=== PATIENT | male | born 1970 | race Two or more races ===

== ENCOUNTER 2020-02-15 12:34 | Emergency (ER) | payer OTHER ==
[~2020-02-15] VITALS: Ht 170.2 cm; Wt 84.0 kg
[2020-02-15 13:06] VITALS: BP 146/91
[2020-02-15] MEDS ORDERED: DIPH,PERTUSS(ACELL),TET VAC/PF 0.5 ML SYRINGE. VAX IM ONE (13:45)
[2020-02-15] MEDS ORDERED: LIDOCAINE 1% Multi-Dose 20 ML VIAL. INJ ONE (13:45)
[2020-02-15] MEDS ORDERED: CEPHALEXIN 250 MG CAPSULE. PO STA (14:35)
[2020-02-15] MEDS ORDERED: CEPH500T PO (14:41)
[2020-02-15] MEDS ORDERED: BACI28.34 TP (14:41)
--- NOTE | 2020-02-15 14:42 | PHYS DOC ---
Past Medical History Past Medical History: No Pertinent History Past Surgical History: No Surgical History Smoking Status: Never Smoker Alcohol Use: None General Adult EDM: Chief Complaint: LACERATION/AVULSION HPI: HPI: Patient is a 49 year old male who presents with laceration to back of scalp. Patient states he was at work using some machinery when his hands slipped off the handles and he fell backwards striking his head against the metal cage. Patient states he did not fall to the ground, also states he did not lose consciousness. Patient states he was dazed for just a few seconds. Patient states that he noticed blood coming from the back of his head, and drove himself to the emergency department. Patient denies any fever or chills, denies any exposure to the COVID-19 virus, has no COVID-19 or concerns. She denies any visual changes, any head or neck pain. Patient denies any cough or shortness of breath, any chest pain or edema. Patient denies any abdominal pain, nausea, vomiting, diarrhea, constipation, or problems urinating. Patient denies any problems seeing or any visual changes, or any nasal congestion. Patient denies any skin rashes, any back pain, or pain in his joints. Patient currently denies any focal weaknesses or sensory changes. Patient denies any swelling of his glands. Patient denies any recent life changes, depressions, anxieties, homicidal or suicidal ideations. While patient does deny headache, he states it does hurt if you push on the laceration site on the back of his head. Patient states he was able to get the bleeding to stop with a pressure dressing applied. Review of Systems: Review of Systems: Constitutional: Denies fever or chills. Denies exposure to or concerns of COVID-19 virus. Eyes: Denies change in visual acuity. HENT: Denies nasal congestion or sore throat. Respiratory: Denies cough or shortness of breath. Cardiovascular: Denies chest pain or edema. GI: Denies abdominal pain, nausea, vomiting, bloody stools or diarrhea. : Denies dysuria. Musculoskeletal: Denies back pain or joint pain. Complains of pain to the back of his head at laceration site. Integument: Denies rash. Complains of a laceration to the back of his head. Neurologic: Denies headache, focal weakness or sensory changes. Lymphatic: Denies swollen glands. Psychiatric: Denies depression or anxiety. Denies homicidal or suicidal ideation Heart Score: Risk Factors: Risk Factors: DM, Current or recent (<one month) smoker, HTN, HLP, family history of CAD, obesity. Risk Scores: Score 0 - 3: 2.5% MACE over next 6 weeks - Discharge Home Score 4 - 6: 20.3% MACE over next 6 weeks - Admit for Clinical Observation Score 7 - 10: 72.7% MACE over next 6 weeks - Early Invasive Strategies Family History: Family History: States he does not know any health history of his mother or father, states he thinks they are both healthy. Current Medications: Current Medications Medications (Trade) Dose Ordered Sig/Pradip Start Time Stop Time Status Last Admin Dose Admin Bacitracin (Bacitracin Zinc Oint Pkt) 1 pkt 1X ONCE 02/15/20 14:45 02/15/20 14:46 UNV Diphtheria/ Tetanus/Acell Pertussis (ADACEL TDap SYRINGE) 0.5 ml ONCE ONCE 02/15/20 13:45 02/15/20 13:46 DC 02/15/20 13:50 0.5 ML Lidocaine HCl (Lidocaine 1% 20ml Vial) 20 ml 1X ONCE 02/15/20 13:45 02/15/20 13:46 DC 02/15/20 13:50 20 ML Allergies: Allergies: Allergies Coded Allergies Type Severity Reaction Last Updated Verified No Known Drug Allergies 02/15/20 No Physical Exam: PE: Constitutional: Well developed, well nourished, no acute distress, non-toxic appearance. HENT: Normocephalic, atraumatic, bilateral external ears normal, oropharynx moist, no oral exudates, nose normal. Eyes: PERRLA, EOMI, conjunctiva normal, no discharge. 4 mm. Neck: Normal range of motion, no tenderness, supple, no stridor. Cardiovascular:Heart rate regular rhythm, no murmur, heart sounds S1-S2, no abnormalities per auscultation. Lungs & Thorax: Bilateral breath sounds clear to auscultation all lung zavala. Abdomen: Bowel sounds normal all 4 quadrants, soft, no tenderness, no masses, no pulsatile masses. Skin: Warm, dry, no erythema, no rash. Has approximately 2.5 cm laceration centerline mid occipital area without bleeding full-thickness. Back: No tenderness, no CVA tenderness. Extremities: No tenderness, no cyanosis, no clubbing, ROM intact, no edema. Neurologic: Alert and oriented X 3, normal motor function, normal sensory function, no focal deficits noted. Psychologic: Affect normal, judgement normal, mood normal. No homicidal or suicidal ideations. Current Patient Data: Vital Signs: Vital Signs Date Time Temp Pulse Resp B/P (MAP) Pulse Ox O2 Delivery O2 Flow Rate FiO2 02/15/20 13:06 98.7 74 16 146/91 (109) 98 Room Air 98.7 EKG: EKG: [] Radiology/Procedures: Radiology/Procedures: [] Course & Med Decision Making: Course & Med Decision Making Pertinent Labs and Imaging studies reviewed. (See chart for details) Patient is [place]-speaking, the facility translation service was used for HPI, physical exam, and discharge instructions. Patient presents with a full-thick ness laceration to the midline occipital aspect scalp without bleeding. Patient reported this happened from a work injury and did not get knocked out, CAT scan imaging was offered concerning for possible close head injury, patient feels like since he did not get knocked out and he is not having any symptoms or headache, that he did not want to have any CAT scan imaging done today. Related to patient alert and oriented x3, I feel that it is appropriate that he can make his own healthcare decisions and it was discussed with the patient that he should return if he has any increased headaches or neurological changes. Patient agreed to this. The laceration was cleansed with Betadine, irrigated with 200 cc of normal saline high-pressure, anesthetized with approximately 3 cc of 1% lidocaine without epinephrine. Patient achieved satisfactory anesthesia, laceration site inspected and no foreign body or debris was noted, laceration was repaired with 5 integumentary bernabe, patient tolerated well, edges well approximated, no bleeding from site. ED nursing staff applied bacitracin ointment, patient was given discharge instructions for bernabe to be removed within 10 days, use of antibiotic ointment daily. Patient was given first dose of p.o. Keflex in the ED, was also given a prescription for p.o. Keflex to fill at pharmacy. Patient gave verbal understanding of discharge home instructions, staple care, and antibiotic prescriptions along with return to ER precautions and concerns. Patient had no further questions or concerns, patient discharged home. Toby Disclaimer: Dragalfa Disclaimer: This electronic medical record was generated, in whole or in part, using a voice recognition dictation system. Departure Departure Impression: Primary Impression: Scalp laceration Qualified Codes: S01.01XA - Laceration without foreign body of scalp, initial encounter Disposition: HOME, SELF-CARE Condition: GOOD Referrals: NO PCP (PCP) Patient Instructions: Laceration Care, Adult Additional Instructions: Have bernabe removed in 10 days return to the emergency department for increased pain, or signs of infection, see your doctor soon. Take antibiotic medication as prescribed. Scripts Cephalexin (CEPHALEXIN) 500 Mg Tablet 1 TAB PO BID for 7 Days, #14 TAB 0 Refills Prov: JANIE JUNIOR APRN 02/15/20 Bacitracin/Polymyxin B Sulfate (POLYSPORIN TOPICAL OINT) 28.3 Gm Oint...g. 1 CHAD TP TID for WOUND CARE, #1 TUBE 0 Refills Applied to stapled laceration site 3 times a day for the next 10 days. Prov: JANIE JUNIOR APRN 02/15/20 Justicifation of Admission Dx: Justifications for Admission: Justification of Admission Dx: N/A JANIE JUNIOR APRN Feb 15, 2020 14:41
[2020-02-15] MEDS ORDERED: BACITRACIN TOPICAL OINT PACKET. TP ONE (14:45)
== END 2020-02-15 14:48 | disposition home or self-care (01) ==
LOC: ER 12:34
DX: S01.01XA Laceration without foreign body of scalp, initial encounter (principal); W18.09XA Striking against other object with subsequent fall, initial encounter; Y93.89 Activity, other specified; Y92.89 Other specified places as the place of occurrence of the external cause; Y99.8 Other external cause status
CPT/HCPCS: 12001; 90471; 90715; 99283; J3490